=== PATIENT | female | born 1970 | race Hispanic/Latino ===

== ENCOUNTER 2017-05-05 11:20 | Emergency (ER) | payer OTHER ==
[2017-05-05 12:10] VITALS: BMI 33.3
[2017-05-05 12:13] VITALS: BP 144/85; PULSE 64; RESP 20; TEMP 97.3; O2SAT 98
--- NOTE | 2017-05-05 12:14 | ED PDOC ---
HPI: Back Time Seen by Provider: 05/05/17 11:46 Chief Complaint (Nursing): Back Pain Chief Complaint (Provider): Back Pain Additional Complaint(s): 46 yo female, no PMH, presents to ED with complaints of severe back pain for seeral months now, worsened by a recent chiropractic visit. Pt reports pain is severe in lower back, worse with movement, radiates down RLE and into buttocks. No bowel or bladder dysfunction, Pt unable to walk far distances. Pt requesting MRI, physical therapy. does not want to take medications. Past Medical History Reviewed: Nursing Documentation, Vital Signs - Medical History PMH: Anxiety, Depression, Hypothyroidism - Surgical History Surgical History: Cholecystectomy - Family History Family History: States: Diabetes - Social History Current smoker - smoking cessation education provided: No Alcohol: None Drugs: Denies - Home Medications Home Medications: Ambulatory Orders Medication Instructions Recorded Ibuprofen [Motrin] 600 mg PO Q6 #20 tab 05/05/17 - Allergies Allergies/Adverse Reactions: Allergies Allergy/AdvReac Type Severity Reaction Status Date / Time Penicillins Allergy RASH Verified 05/05/17 12:06 Review of Systems ROS Statement: Except As Marked, All Systems Reviewed And Found Negative Musculoskeletal: Positive for: Back Pain Physical Exam - Reviewed Nursing Documentation Reviewed: Yes Vital Signs Reviewed: Yes - Physical Exam Appears: Positive for: Well, Non-toxic, No Acute Distress Head Exam: Positive for: ATRAUMATIC, NORMAL INSPECTION, NORMOCEPHALIC Skin: Positive for: Normal Color, Warm, DRY Eye Exam: Positive for: EOMI, Normal appearance, PERRL ENT: Positive for: Normal ENT Inspection Neck: Positive for: Normal, Painless ROM Cardiovascular/Chest: Positive for: Regular Rate, Rhythm Respiratory: Positive for: CNT, Normal Breath Sounds Gastrointestinal/Abdominal: Positive for: Normal Exam, Bowel Sounds, Soft Back: Positive for: Normal Inspection, Vertebral Tenderness, Other (straight leg raise + on right at ~60 degrees) Extremity: Positive for: Normal ROM Neurologic/Psych: Positive for: Alert, Oriented Medical Decision Making Medical Decision Making: Pt agreed to medicated with Motrin PO CT scan initially ordered, Pt then declined. Requested PT and MRI. Pt educated on indications for MRI and demonstrated full understanding. Pt advised to follow up witn PMD for PT referral and MRI if needed. Pt unable to get a clinic appointment until June. Clinic contacted by comic book writer and Appointment made for 7/5 at 3;15 Disposition - Clinical Impression Clinical Impression: Low back pain, Sciatic nerve pain - Patient ED Disposition Is Patient to be Admitted: No - Disposition Disposition: Routine/Home Disposition Time: 14:49 Condition: STABLE Additional Instructions: Clinic appointment made for: 05/12/17 at 3:15 Prescriptions: Ibuprofen [Motrin] 600 mg PO Q6 #20 tab Instructions: Back Pain (ED) - POA Present On Arrival: None
== END 2017-05-05 14:00 | disposition home or self-care (01) ==
LOC: H.ER 11:20
DX: M54.30 Sciatica, unspecified side (principal); Z86.59 Personal history of other mental and behavioral disorders; Z88.0 Allergy status to penicillin